=== PATIENT | female | born 1940 | race Hispanic/Latino ===

== ENCOUNTER 2018-12-29 18:25 | Emergency (ER) | payer MEDICARE ==
[~2018-12-29] VITALS: Ht 152.4 cm; Wt 92.1 kg
--- OUTSIDE RECORDS SUMMARY | 2018-12-29 18:27 | XMS REPORT | Continuity of Care Document ---
Author Author [facility] Interface Address Unknown Phone Unavailable Problems Problem Status Onset Date Classification Date Reported Comments Source M81.0 Active 07/09/2017 [facility] DVT Active 05/17/2015 [facility] 440.21; ATHEROSCLER [place] ARTERIES THE Active 09/02/2014 [facility] ATH EXT NTV AT [address] CLA[place]CT Active [facility] DEEP VEIN THROMB-ANTEPAR Active [facility] S27.0 Active [facility] UNK Active [facility] CHEST PAIN, UNSPECIFIED Active [facility] LEFT KNEE Active [facility] [place] J93.9 Active [facility] PNEUMOTHORAX, UNSPECIFIED Active [facility] X-RAY Active [facility] UNSPECIFIED OSTEOARTHRITIS, UNSPECIFIED Active [facility] KNEE PAIN Active [facility] AGE-RELATED OSTEOPOROSIS W/O CURRENT PAT Active [facility] Medications Medication Details Route Status Patient Instructions Ordering Provider Order Date Source Allergies, Adverse Reactions, Alerts Substance Category Reaction Severity Reaction type Status Date Reported Comments Source Immunizations Immunization Date Given Site Status Last Updated Comments Source Results Order Name Results Value Reference Range Date Interpretation Comments Source Bone Density Scan Bone Density Scan Patient Name: KODAK GATES : 1940; Age: 77 years y/o Female MR: [id number] Study: Bone Density Scan 08/27/2017 8:43 AM CDT Clinical Indication: - age related osteoporosis. COMPARISON: None FINDINGS: The axial lumbar bone mineral density is 111% of the expected age matched bone mass with a T-score 1.0. Axial lumbar average BMD is 1.16 g/cm2. The left femoral neck bone mineral density is 78% of the expected age matched bone mass with a T-score of -1.6. Left femoral neck BMD is 0.68 g/cm2. The total femoral BMD is 1.01 g/cm2. IMPRESSION: 1. Normal bone mineral density of the lumbar spine. 2. Osteopenia of the left femoral neck. The World Health Organization has established that OSTEOPOROSIS occurs at -2.5 or more standard deviations (SD) below peak bone mass. OSTEOPENIA (low bone mass) occurs at -1.0 standard deviations to -2.5 standard deviations below peak bone mass. 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 Mild narrowing of the patellofemoral compartment with tiny inferior marginal spurring. No gross soft tissue abnormalities. IMPRESSION: No acute abnormalities. Mild degenerative changes of the patellofemoral compartment. SL: [id number] 11/02/2016 - - Read by: Lico Campuzano MD Dictated Date/time: 11/02/16 16:37 Electronically Signed by: Lico Campuzano MD 11/02/16 16:38 FINAL REPORT [facility] Chest 2 views DX Chest 2 views DX CLINICAL HISTORY: Rib fracture. One view chest. Comparison 09/20/2015. Right rib fracture deformity persists. There is no pneumothorax or pleural effusion appreciated. No acute pulmonary infiltrate. Cardiomediastinal silhouette as before. Degenerative changes dorsal spine. IMPRESSION: Right rib fracture. No pneumothorax pleural effusion or acute finding, otherwise. SL:13 11/03/2015 - - Read by: Fransisco Parsons MD Dictated Date/time: 11/03/15 13:24 Electronically Signed by: Fransisco Parsons MD 11/03/15 13:27 FINAL REPORT [facility] Chest 2 views DX Chest 2 views DX PA and lateral: The cardiomediastinal silhouette, pulmonary vasculature and joseph are within normal limits. There is mild subsegmental atelectasis in the lingula, showing no significant change compared to 09/20/2015. The lungs and pleural spaces are otherwise clear. There are no acute osseous abnormalities. IMPRESSION: No acute radiographic abnormality in the chest. SL:13 09/23/2015 - - Read by: Quirino Quan MD Dictated Date/time: 09/24/15 00:54 Electronically Signed by: Quirino Quan MD 09/24/15 00:55 FINAL REPORT [facility] Ribs unilateral DX Ribs unilateral DX CLINICAL HISTORY: Recent trauma with right chest pain. Right rib series 3 views. Correlation: Chest radiograph same day. Right fourth rib fracture deformity. No pleural effusion. No large pneumothorax suggested. (A tiny apical pneumothorax was in question by chest radiograph.) Atelectatic changes within the lung bases. IMPRESSION: Right rib fracture. SL:13 09/20/2015 - - Read by: Fransisco Parsons MD Dictated Date/time: 09/20/15 10:47 Electronically Signed by: Fransisco Parsons MD 09/20/15 10:50 FINAL REPORT [facility] Chest 2 views DX Chest 2 views DX CLINICAL HISTORY: Right-sided chest pain status post recent fall. Chest 2 views. Comparison 11/03/2009. Right fourth and fifth posterior lateral rib fractures. Left lung base and lingular atelectasis. Mild right lung base atelectasis. No pleural effusion. Question trace right apical pneumothorax. Cardiomediastinal silhouette at baseline. IMPRESSION: Right rib fractures. Question tiny apical right pneumothorax. Consider short interval radiographic follow-up, if clinical symptoms persist or worsen. Report called to Dr Rangel office nurse at the time of dictation. SL:13 09/20/2015 - - Read by: Fransisco Parsons MD Dictated Date/time: 09/20/15 10:13 Electronically Signed by: Fransisco Parsons MD 09/20/15 10:36 FINAL REPORT [facility] Ext Lower Venous Doppler Bilat US Ext Lower Venous Doppler Bilat US BILATERAL LOWER EXTREMITY VENOUS DOPPLER HISTORY: Lower extremity pain/DVT. COMMENT: The deep venous system of the lower extremities was interrogated from inguinal ligament to the popliteal fossae utilizing high-resolution duplex sonography (Color-flow and spectral Doppler). FINDINGS: The deep veins are readily visualized and easily compressible. There is normal spontaneous, phasic flow by Doppler with augmentation of flow with calf compression. This constitutes a negative exam. CONCLUSION: 1. Negative bilateral lower extremity venous Doppler. SL: 13 Magan Vazquez M.D. 05/17/2015 - - Read by: Magan Vazquez MD Dictated Date/time: 05/17/15 15:12 Electronically Signed by: Magan Vazquez MD 05/17/15 15:13 FINAL REPORT [facility] Spine lumbar series DX Spine lumbar series DX Examination: Lumbar spine, 5 views History: Low Back pain Comparison: None. Findings: Multiple views of the lumbar spine show 5 nonrib bearing lumbar vertebra. Bones are demineralized. No acute compression fracture is seen. Grade 1 anterolisthesis of L3 over L4 by 4 mm is seen. Grade 1 anterolisthesis of L4 over L5 by 3 mm is also seen. There is also grade 1 anterolisthesis of L5 over S1 by 5 mm. Mild multilevel disc height loss throughout the mid to lower lumbar spine is seen, compatible with mild degenerative disc disease. Severe facet arthrosis throughout the mid to lower lumbar spine is also present. No pars interarticularis defects are seen. Arterial calcifications are noted. IMPRESSION: Degenerative disc disease with advanced facet arthrosis of the lower lumbar spine. SL: 16 05/17/2015 - - Read by: Felipe Gallagher MD Dictated Date/time: 05/17/15 14:27 Electronically Signed by: Felipe Gallagher MD 05/17/15 14:29 FINAL REPORT [facility] Abdominal Aorta with runoff CTA Abdominal Aorta with runoff CTA CT ANGIOGRAPHY OF THE ABDOMINAL AORTA, ILIAC ARTERIES, AND LOWER EXTREMITY ARTERIES HISTORY: Peripheral vascular disease, atherosclerosis. TECHNIQUE: High-resolution (2.5 mm) helical CT images were obtained from the domes of the diaphragms to the feet following the dynamic administration of nonionic iodinated intravenous contrast for maximal arterial opacification (CT angiogram technique). 3-D volumetric rotational (obtained on an independent workstation), sagittal and coronal reconstructions were provided. FINDINGS (Vascular - arterial): I. Abdominal aorta and iliac arteries: 1. Moderate diffuse atherosclerotic changes involving the abdominal aorta and iliac arteries. 2. The abdominal aorta is normal in caliber. There is no aneurysm or dissection. Is no significant stenosis. 3. Relatively mild atherosclerotic change involving the common/external iliac arteries. There is no significant stenosis. There is therefore good inflow into both lower extremities via the aortoiliac system. 4. The hypogastric arteries are patent with minimal disease. 5. There appear to be stenoses involving 0 the proximal celiac axis and the proximal superior mesenteric artery. There appears to be a diffuse moderate stenosis of the proximal celiac artery the order of 60%. There appears to be a mild to moderate (approximately 40 to 50%) stenosis of the proximal celiac axis. The inferior mesenteric artery is small but patent. 6. There are single renal arteries bilaterally. The right renal artery is widely patent. There is an extensive calcified plaque near the origin of the left renal artery. There appears to be a mild (approximately 30-40%) stenosis of the proximal left renal artery. II. Right Lower Extremity: 1. The right common femoral artery and right profunda femoral artery are widely patent. 2. The right superficial femoral artery is widely patent without significant disease or evidence of stenosis. The right popliteal artery is patent. 3. There is 3 vessel run off on the right. 4. Overall, there does not appear to be significant infrainguinal disease on the right. III. Left Lower Extremity: 1. The left common femoral artery and left profunda femoral artery are widely patent. 2. The left superficial femoral artery is widely patent without significant disease or evidence of stenosis. There is minimal plaquing involving the proximal popliteal artery. There is noted significant stenosis. 3. There is 3 vessel run off on the left. 4. Overall, there does not appear to be significant infrainguinal disease on the left. FINDINGS (Other non arterial findings): 1. Extensive superficial venous varicosities are noted involving the right lower extremity including the right calf laterally, right thigh laterally, and right inguinal region. 2. Status post cholecystectomy. Surgical clips are noted in the right upper quadrant. Mild prominence of the common bile duct is felt to be related to post cholecystectomy changes. 3. Moderate sigmoid diverticulosis. Is mild to moderate right-sided diverticulosis. There a few other scattered colonic diverticula. There is no evidence of diverticulitis. The remainder of the intestinal structures are unremarkable there are spelled evaluation 4. The solid organs are unremarkable. The liver, spleen, pancreas, and adrenal glands are normal in appearance. The kidneys show good, symmetrical excretion without hydronephrosis. 5. No mass or adenopathy seen within the abdomen or pelvis. 6. Very small umbilical hernia. There is no herniation of bowel. 7. Mild cardiomegaly. There is no pericardial effusion. 8. The visualized lung bases are clear. There are no pleural effusions. 9. Extensive degenerative facet disease in the lower lumbosacral region. SL: 13 Magan Vazquez M.D. 09/07/2014 - - Read by: Magan Vazquez MD Dictated Date/time: 09/07/14 08:31 Electronically Signed by: Magan Vazquez MD 09/07/14 08:55 FINAL REPORT [facility] Vital Signs Vital Sign Value Date Comments Source Encounters Location Location Details Encounter Type Encounter Number Reason For Visit Attending Provider ADM Date DC Date Status Source [facility] Outpatient [id number] Elver Loyola 09/07/2014 09/08/2014 [facility] Outpatient [id number] Elver Loyola 05/17/2015 05/18/2015 [facility] Outpatient [id number] Antonio Alloju 09/20/2015 09/21/2015 [facility] Outpatient [id number] Antonio Alloju 09/23/2015 09/24/2015 [facility] Outpatient [id number] Antonio Alloju 11/03/2015 11/04/2015 [facility] Outpatient [id number] Antonio Alloju 11/02/2016 11/03/2016 [facility] OP Therapy Patients [id number] Lance Jarvis 11/09/2016 11/25/2016 [facility] OP Therapy Patients [id number] Lance Ajrvis 11/28/2016 12/28/2016 [facility] OP Therapy Patients [id number] Lance Jarvis 12/28/2016 01/27/2017 [facility] Outpatient [id number] Lance Jarvis 08/27/2017 08/28/2017 [facility] Procedures Procedure Code Date Perfomer Comments Source
--- OUTSIDE RECORDS SUMMARY | 2018-12-29 18:27 | XMS REPORT | Summary of Care ---
Author Organization Unknown Address Unknown Phone Unavailable Encounter HQ Encntr_alias(SOL) [id number] Date(s): 05/17/15 - 05/17/15 [facility] [address] [place] [address]- Discharge Disposition: Home Physician Attending: Osiel Pretty MD Physician_Referring: Elver Loyola MD Vital Signs No data available for this section Problem List No data available for this section Allergies, Adverse Reactions, Alerts Substance Reaction Severity Status NKDA Active Medications No data available for this section Results No data available for this section Immunizations No data available for this section Procedures No data available for this section Social History No data available for this section Assessment and Plan No data available for this section
--- OUTSIDE RECORDS SUMMARY | 2018-12-29 18:27 | XMS REPORT | Summary of Care ---
Author Organization Unknown Address Unknown Phone Unavailable Encounter HQ Simonentr_thelma(SOL) [id number] Date(s): 09/07/14 - 09/07/14 [facility] [address] [place], [place] [id number] [place] [address] Discharge Disposition: Home Physician Attending: Elver Loyola MD Physician_Referring: Elver Loyola MD Reason for Visit 440.21; ATHEROSCLER [place] ARTERIES THE EXTREMITIES W/I Problem List No data available for this section Allergies, Adverse Reactions, Alerts Substance Reaction Severity Status NKDA Active Medications No data available for this section Medications Administered During Your Visit No data available for this section Immunizations No data available for this section
--- OUTSIDE RECORDS SUMMARY | 2018-12-29 18:27 | XMS REPORT | Summary of Care ---
Author Author [facility] Organization [facility] Address Unknown Phone Unavailable Encounter HQ Encntr_alias(FIN) [id number] Date(s): 09/23/15 - 09/23/15 [facility] [address] [place] [address]- Discharge Disposition: Home Attending Physician: Antonio Ragnel MD Vital Signs No data available for [...]
--- OUTSIDE RECORDS SUMMARY | 2018-12-29 18:28 | XMS REPORT | Summary of Care ---
Author Author [facility] Organization [facility] Address Unknown Phone Unavailable Encounter HQ Encntr_alias(FIN) [id number] Date(s): 08/27/17 - 08/27/17 [facility] [address] [place] [address]- Discharge Disposition: Home or Self Care Attending Physician: Lance Jarvis MD Referring Physician: Lance Jarvis MD Vital Signs No data available for [...]
--- OUTSIDE RECORDS SUMMARY | 2018-12-29 18:28 | XMS REPORT | Summary of Care ---
Author Author [facility] Address Unknown Phone Unavailable Encounter HQ Encntr_alimanuel(SOL) [id number] Date(s): 11/09/16 - 11/25/16 [facility] Discharge Disposition: Home or Self Care Attending Physician: Lance Jarvis MD Vital Signs No [...]
--- OUTSIDE RECORDS SUMMARY | 2018-12-29 18:28 | XMS REPORT | Summary of Care ---
Author Author [facility] Address Unknown Phone Unavailable Encounter HQ Encntr_alimanuel(SOL) [id number] Date(s): 12/28/16 - 01/26/17 [facility] Discharge Disposition: Home or Self Care Attending Physician: Lacne Jarvis MD Vital Signs No data available [...]
--- OUTSIDE RECORDS SUMMARY | 2018-12-29 18:28 | XMS REPORT | Summary of Care ---
Author Author [facility] Organization [facility] Address Unknown Phone Unavailable Encounter HQ Encntr_alias(FIN) [id number] Date(s): 09/20/15 - 09/20/[address] [facility] [address] [place] [address]- Discharge Disposition: Home Attending Physician: Antonio Rangel MD Admitting Physician: Antonio Rangel MD Vital Signs No data available for [...]
--- OUTSIDE RECORDS SUMMARY | 2018-12-29 18:28 | XMS REPORT | Summary of Care ---
Author Author [facility] Organization [facility] Address Unknown Phone Unavailable Encounter HQ Encntr_alias(FIN) [id number] Date(s): 11/03/15 - 11/03/15 [facility] [address] [place] [address]- [phone] Discharge Disposition: Home Attending Physician: Antonio Rangel [...]
== END 2018-12-29 19:24 | disposition home or self-care (01) ==
LOC: FSED 18:25
DX: R52 Pain, unspecified (principal); K11.21 Acute sialoadenitis; I10 Essential (primary) hypertension
CPT/HCPCS: 99283

== ENCOUNTER 2019-05-19 10:56 | Emergency (ER) | payer MEDICARE ==
[~2019-05-19] VITALS: Ht 152.4 cm; Wt 92.1 kg
--- OUTSIDE RECORDS SUMMARY | 2019-05-19 10:59 | XMS REPORT | Continuity of Care Document ---
Author Author [facility] Interface Address Unknown Phone Unavailable Problems Problem Status Onset Date Classification Date Reported Comments Source M81.0 Active 07/09/2017 [facility] DVT Active 05/17/2015 [facility] 440.21; ATHEROSCLER [place] ARTERIES THE Active 09/02/2014 [facility] ATH EXT NTV AT [address] CLA[place]CT Active [facility] DEEP VEIN THROMB-ANTEPAR Active [facility] UNK Active [facility] CHEST PAIN, UNSPECIFIED Active [facility] S27.0 Active [facility] LEFT KNEE Active [facility] [place] X-RAY Active [facility] UNSPECIFIED OSTEOARTHRITIS, UNSPECIFIED Active [facility] J93.9 Active [facility] PNEUMOTHORAX, UNSPECIFIED Active [facility] AGE-RELATED OSTEOPOROSIS W/O CURRENT PAT Active [facility] KNEE PAIN Active [facility] [place] Medications Medication Details Route Status Patient Instructions [...] 1940; Age: 77 years y/o Female MR: [id number] Study: Bone Density Scan 08/27/2017 8:43 AM [...] Ángel Medley MD 08/27/17 16:46 FINAL REPORT [facility] Knee 4+ views unilateral DX Knee 4+ views unilateral DX Patient Name: KODAK GATES : 1940; Age: 76 years Female MR: [id number] Study: Knee 4+ views unilateral DX 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 Mild narrowing of the patellofemoral compartment with tiny inferior marginal spurring. No gross soft tissue abnormalities. IMPRESSION: No acute abnormalities. Mild degenerative changes of the patellofemoral compartment. SL: [id number] 11/02/2016 - - Read by: Lico Campuzano MD Dictated Date/time: 11/02/16 16:37 Electronically Signed by: Lico Campuzano MD 11/02/16 16:38 FINAL REPORT [facility] Chest 2 views DX Chest 2 [...] Fransisco Parsons MD 11/03/15 13:27 FINAL REPORT [facility] Chest 2 views DX Chest 2 [...] Quirino Quan MD 09/24/15 00:55 FINAL REPORT [facility] Ribs unilateral DX Ribs unilateral DX [...] Fransisco Parsons MD 09/20/15 10:50 FINAL REPORT [facility] Chest 2 views DX Chest 2 [...] Fransisco Parsons MD 09/20/15 10:36 FINAL REPORT [facility] Ext Lower Venous Doppler Bilat US [...] Magan Vazquez MD 05/17/15 15:13 FINAL REPORT [facility] Spine lumbar series DX Spine lumbar [...] Felipe Gallagher MD 05/17/15 14:29 FINAL REPORT [facility] Abdominal Aorta with runoff CTA Abdominal [...] Magan Vazquez MD 09/07/14 08:55 FINAL REPORT [facility] Vital Signs Vital Sign Value Date Comments Source Encounters Location Location Details Encounter Type Encounter Number Reason For Visit Attending Provider ADM Date DC Date Status Source [facility] Outpatient [id number] Elver Loyola 09/07/2014 09/08/2014 [facility] Outpatient [id number] Elver Loyola 05/17/2015 05/18/2015 [facility] Outpatient [id number] Antonio Alloju 09/20/2015 09/21/2015 [facility] Outpatient [id number] Antonio Alloju 09/23/2015 09/24/2015 [facility] Outpatient [id number] Antonio Alloju 11/03/2015 11/04/2015 [facility] Outpatient [id number] Antonio Alloju 11/02/2016 11/03/2016 [facility] OP Therapy Patients [id number] Lance Jarvis 11/09/2016 11/25/2016 [facility] OP Therapy Patients [id number] Lance Jarvis 11/28/2016 12/28/2016 [facility] OP Therapy Patients [id number] Lance Jarvis 12/28/2016 01/27/2017 [facility] Outpatient [id number] Lance Jarvis 08/27/2017 08/28/2017 [facility] Registered Emergency Room [id number] ELTON PLATT MD 12/29/2018 [facility] Procedures Procedure Code Date Perfomer Comments Source
--- OUTSIDE RECORDS SUMMARY | 2019-05-19 11:00 | XMS REPORT | Summary of Care ---
Author Author LINDSAY MATIAS M.D. Unknown Address Unknown Phone Unavailable Care Team Providers Care Engine Dynamometer Tester Name Role Phone FILOMENA ORDAZ M.D. Unavailable Unavailable LINDSAY MATIAS M.D. 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: Active Knee pain, bilateral (719.46, M25.561) Status: Active Primary osteoarthritis of left knee (715.16, M17.12) Status: Active Age related osteoporosis (733.01, M81.0) Status: Active Acute sialoadenitis (527.2, K11.21) Status: Active Bilateral hearing loss (389.9, H91.93) Status: Active Tinnitus of both ears (388.30, H93.13) Status: Active Arthralgia of left temporomandibular joint (524.62, M26.622) Status: Active Medications Name Dates Details Benicar TABS Active Alendronate Sodium TABS * Refills: 0 Active Multi-Vitamin TABS * Refills: 0 Active Calcium TABS * Refills: 0 Active Fish Oil CAPS * Refills: 0 Active Vitamin D3 TABS * Refills: 0 Active Biotin TABS * Refills: 0 Active Lipase Concentrate-HP CAPS * Refills: 0 Active Alendronate Sodium 35 MG Oral Tablet Take 1 tablet by mouth weekly * Quantity: 12 Refills: 0 FILOMENA ORDAZ M.D. * Start : 07-Jan-2018 Active Amoxil 500 MG CAPS * Refills: 0 Active Allergies and Adverse Reactions Name Dates Details No Known Drug Allergies (Allergy) Status: Active Past Medical History Name Dates Details History of Essential hypertension, benign (401.1, I10) Status: Resolved History of low back pain (V13.59, Z87.39) Status: Resolved History of osteoporosis (V13.59, Z87.39) Status: Resolved Procedures Procedure Dates Details Audiogram Date: 02-Jan-2019 History of Cholecystectomy Completed Immunization Name Dates Details Immunizations not documented Family History Name Dates Details Family history of cardiac disorder (V17.49, Z82.49) Status: Active Family history of gout (V18.19, Z82.69) Status: Active Family history of essential hypertension (V17.49, Z82.49) Status: Active Social History Name Dates Details - Status: Name Dates Details Never smoker Vital Signs Date Test Result Details [id number] Height 60 in Status: Weight 203.5625 lb Status: Body Mass Index Calculated 39.76 kg/m2 Status: Body Surface Area Calculated 1.88 m2 Status: Results Date Description Value Details Results not documented Plan of Care Name Dates Details Planned Observations Planned Goals not documented Interventions Provided Plan* 79 yo F with h/o CAD, now with bilateral nonpulsatile tinnitus, sensorineural hearing loss; resolved left parotid sialoadenitis; mild left TMJ pain * - conservative management for TMJ pain * - audio reviewed. Medically cleared for hearing aids * - RTC 1 year with audio Instructions Name Dates Details Instructions not documented Encounters Appointment; FILOMENA ORDAZ M.D. Encounter Diagnosis: Problem not documented On: 07-Sep-2017 9:45 Appointment; FILOMENA ORDAZ M.D. Encounter Diagnosis: Problem not documented On: 13-Sep-2017 10:00 Appointment; FILOMENA ORDAZ M.D. Encounter Diagnosis: Problem not documented On: 11-Mar-2018 13:45 Appointment; JOSEPHINE DE LEON M.D. Encounter Diagnosis: Problem not documented On: 19-Aug-2018 15:15 Appointment; LINDSAY MATIAS M.D. Encounter Diagnosis: Problem not documented On: 02-Jan-2019 13:00 Appointment; NICO GAN Encounter Diagnosis: Problem not documented On: 13-Feb-2019 13:00 Appointment; LINDSAY MATIAS M.D. Encounter Diagnosis: Problem not documented On: 13-Feb-2019 13:30
[2019-05-19] MEDS ORDERED: MAGNESIUM OXID400 MG PO (11:22)
[2019-05-19] MEDS ORDERED: VITAMIN D1000 UNI1 PO (11:22)
[2019-05-19] MEDS ORDERED: FISH OIL 1,0001 EAC2 PO (11:22)
[2019-05-19] MEDS ORDERED: BENICAR20 MG PO (11:22)
[2019-05-19] MEDS ORDERED: PROBIOTIC GUMMIES (11:22)
[2019-05-19] MEDS ORDERED: BIOTIN5 M1 PO (11:22)
[2019-05-19] MEDS ORDERED: B-125000 MCG PO (11:22)
[2019-05-19] MEDS ORDERED: MULTI-VITAMIN1 EACH PO (11:22)
[2019-05-19] MEDS ORDERED: ALENDRONATE SOD35 MG PO (11:22)
[2019-05-19] MEDS ORDERED: ASPIR 8181 MG PO (11:22)
[2019-05-19] MEDS ORDERED: ALOE VERA237 ML (11:22)
[2019-05-19] MEDS ORDERED: DEXAMETHASONE 10MG/ML PF INJ ONE (11:30)
[2019-05-19] MEDS ORDERED: DEXAMETHASONE SOD PHOS 10 MG/1 ML VIAL IM ONE (11:30)
--- NOTE | 2019-05-19 12:05 | Diagnostic Imaging Report ---
Exam: Right hip and pelvis History: Right hip pain x3 days Comparison: None. Findings: No acute, displaced fracture or dislocation. Mild symmetric hip joint space narrowing and marginal acetabular osteophytosis. Sacroiliac joints are intact. Mild degenerative disc changes of the partially visualized lower lumbar spine. Impression: No acute osseous abnormality. 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 Signed by: Dr. Quirino Davila M.D. on 05/19/2019 12:01 PM
[2019-05-19] MEDS ORDERED: ETODOLAC500 MG PO (12:13)
== END 2019-05-19 11:39 | disposition home or self-care (01) ==
LOC: FSED 10:56
DX: M25.551 Pain in right hip (principal); M16.11 Unilateral primary osteoarthritis, right hip; M46.1 Sacroiliitis, not elsewhere classified; R26.2 Difficulty in walking, not elsewhere classified; I10 Essential (primary) hypertension
CPT/HCPCS: 73502; 99283; J1100

== ENCOUNTER 2024-07-07 14:39 | Emergency (ER) | payer MEDICARE ==
[~2024-07-07] VITALS: Ht 149.9 cm; Wt 72.6 kg
[~2024-07-07 14:39] MED LIST: ALENDRONATE SOD35 MG PO; ALOE VERA237 ML; ASPIR 8181 MG PO; B-125000 MCG PO; BENICAR20 MG PO; BIOTIN5 M1 PO; CLINDAMYCIN HC300 MG PO; ETODOLAC500 MG PO; FISH OIL 1,0001 EAC2 PO; MAGNESIUM OXID400 MG PO; MULTI-VITAMIN1 EACH PO; PROBIOTIC GUMMIES; TYLENOL EXTRA500 MG PO; VITAMIN D1000 UNI1 PO
[2024-07-07] MEDS ORDERED: KIONEX 1515 GM/60 M PO (16:26)
[2024-07-07 16:54] VITALS: PULSE 68; RESP 18; TEMP 98.6; O2SAT 97
== END 2024-07-07 16:55 | disposition home or self-care (01) ==
LOC: FSED 14:48
DX: E87.5 Hyperkalemia (principal)
CPT/HCPCS: 70450; 80053; 80307; 81003; 85025; 99284